=== PATIENT | female | born 1995 | race Caucasian/White ===

== ENCOUNTER 2017-01-06 03:07 | Emergency (ER) | payer OTHER, BC ==
[~2017-01-06] VITALS: Ht 172.7 cm; Wt 98.0 kg
[2017-01-06 03:07] VITALS: BP 141/86; PULSE 76; RESP 16; TEMP 98.6; O2SAT 96
[~2017-01-06 03:07] MED LIST: BACT800T5 PO; LORTA5 PO; PHEN1TAB49 PO
[2017-01-06 04:56] VITALS: BP 130/67; PULSE 71; RESP 16; O2SAT 100
[2017-01-06] MEDS: SODIUM CHLOR 0.9% 1000 ML INJ 1,000 ML IV SCH ×2 (05:10→06:26)
[2017-01-06] MEDS ORDERED: KETOROLAC TROMETHAMINE 30 MG/ML (IVP) VIAL IVP ONE (05:15)
[2017-01-06] MEDS ORDERED: FAMOTIDINE 20 MG/2 ML VIAL IV PUSH ONE (05:15)
[2017-01-06] MEDS: ALUMINUM/MAGNESIUM/SIMETH 30 ML CUP PO ONE ×2 (05:15→06:26)
[2017-01-06] MEDS ORDERED: SODIUM CHLORIDE 0.9% FLUSH 10 ML FLUSH IV FLUSH PRN (05:15)
[2017-01-06] MEDS: LIDOCAINE VISCOUS 2% SOLN 15 ML UDC PO ONE ×2 (05:15→06:26)
[2017-01-06] MEDS ORDERED: ONDANSETRON HCL 4 MG/2 ML VIAL IVP ONE (05:15)
[2017-01-06] MEDS ORDERED: MORPHINE SULFATE 4 MG/ML INJ IV PUSH ONE (05:15)
[2017-01-06 05:41] LABS: BACTERIA, URINE RARE /hpf; BLOOD, URINE NEG (NEG); CALCIUM OXALATE CRYSTALS,URINE OCC /hpf; GLUCOSE,URINE NEG (NEG); KETONE, URINE NEG (NEG); MUCUS URINE FEW /lpf (OCC); NITRITE,URINE NEG (NEG); SQUAMOUS EPITHELIAL CELL URINE 1 /hpf (0-5); URINE COLOR YELLOW (YELLW/STRAW)
[2017-01-06 05:42] LABS: COMMENT (UR) CULT NOT INDICATED; CULTURE IF INDICATED CULT NOT INDICATED
[2017-01-06 06:10] LABS: AUTOMATED NEUTROPHIL # 5.1 TH/MM3 (1.8-7.7); BASOPHIL # 0.1 TH/MM3 (0-0.2); BASOPHIL % 0.9 % (0.0-2.0); EOSINOPHIL # 0.2 TH/MM3 (0-0.4); EOSINOPHIL % 1.9 % (0.0-4.0); HEMATOCRIT 38.4 % (35.0-46.0); HEMO FLAGS DIFF FINAL; LYMPH % 41.1 % (9.0-44.0); LYMPHOCYTE # 4.2 TH/MM3 (1.0-4.8); MEAN CELL VOLUME 84.2 FL (80.0-100.0); MEAN CORPUSCULAR HEMOGLOBIN 28.7 PG (27.0-34.0); MEAN CORPUSCULAR HGB CONC 34.1 % (32.0-36.0); MONO % 6.6 % (0.0-8.0); NEUT % 49.5 % (16.0-70.0); PLATELET COUNT 301 TH/MM3 (150-450); RED BLOOD COUNT 4.56 MIL/MM3 (4.00-5.30); RED CELL DISTRIBUTION WIDTH 12.7 % (11.6-17.2); WHITE BLOOD COUNT 10.3 TH/MM3 (4.0-11.0)
[2017-01-06 06:29] VITALS: BP 132/81; PULSE 87; RESP 16; O2SAT 98
[2017-01-06 06:50] LABS: BICARBONATE 28.2 MEQ/L (21.0-32.0); POTASSIUM 3.4 MEQ/L (3.5-5.1)
[2017-01-06 06:52] LABS: INDIRECT BILIRUBIN 0.1 MG/DL (0.0-0.8); TOTAL BILIRUBIN ADULT 0.2 MG/DL (0.2-1.0)
--- NOTE | 2017-01-06 06:57 | PD ---
HPI Chief Complaint: Abdominal Pain Time Seen by Provider: 05:01 Travel History International Travel<30 days: No Contact w/Intl Traveler<30days: No Traveled to known affect area: No History of Present Illness HPI Patient is a 21-year-old female comes in complaining of epigastric pain. She says she has had the pain on and off for a few days, but got worse last night. She says she ate [employer] prior to going to bed. She denies fever or chills. She says she occasionally has nausea, but not vomiting. She denies radiation of the pain. She says she is concerned about her gallbladder. FOR[facility]LY [facility], [facility] Past Medical History Medical History: Denies Significant Hx Tetanus Vaccination: Never Vaccinated Influenza Vaccination: No ?: Not LMP: 12/26/16 Past Surgical History Surgical History: No Previous Surgery Social History Alcohol Use: Yes ([facility]) Tobacco Use: No Substance Use: No Allergies-Medications (Allergen,Severity, Reaction): Coded Allergies: No Known Allergies (Verified , 01/06/17) Reported Meds & Prescriptions Reported Meds & Active Scripts Active No Active Prescriptions or Reported Medications Review of Systems Except as stated in HPI: all other systems reviewed are Neg General / Constitutional: No: Fever, Chills HENT: No: Headaches, Lightheadedness Cardiovascular: No: Chest Pain or Discomfort Respiratory: No: Shortness of Breath Gastrointestinal: Positive: Nausea, Abdominal Pain, No: Vomiting Genitourinary: No: Dysuria Skin: No Rash, No Change in Pigmentation Neurologic: No: Weakness, Dizziness Physical Exam Narrative GENERAL: Awake and alert, in no acute distress. SKIN: Focused skin assessment warm/dry. HEAD: Atraumatic. Normocephalic. EYES: Pupils equal and round. No scleral icterus. ENT: Mucous membranes pink and moist. NECK: Trachea midline. No JVD. CARDIOVASCULAR: Regular rate and rhythm. No murmur appreciated. RESPIRATORY: No accessory muscle use. Clear to auscultation. Breath sounds equal bilaterally. GASTROINTESTINAL: Abdomen soft, nondistended. Mild tenderness to the right upper quadrant epigastric area. No rebound or guarding. MUSCULOSKELETAL: No obvious deformities. No clubbing. No cyanosis. No edema. NEUROLOGICAL: Awake and alert. No obvious cranial nerve deficits. Motor grossly within normal limits. Normal speech. PSYCHIATRIC: Appropriate mood and affect; insight and judgment normal. Data Data Last Documented VS Vital Signs Date Time Temp Pulse Resp B/P Pulse Ox O2 Delivery O2 Flow Rate FiO2 01/06/17 06:29 87 16 132/81 98 Room Air 01/06/17 03:07 98.6 Orders Urinalysis - C+S If Indicated (01/06/17 04:34) Ed Urine Pregnancytest Poc (01/06/17 04:34) Basic Metabolic Panel (Bmp) (01/06/17 05:10) Complete Blood Count With Diff (01/06/17 05:10) Lipase (01/06/17 05:10) Us Abdomen Gallbladder (01/06/17 ) Iv Access Insert/Monitor (01/06/17 05:10) Ecg Monitoring (01/06/17 05:10) Oximetry (01/06/17 05:10) Morphine Inj (Morphine Inj) (01/06/17 05:15) Ondansetron Inj (Zofran Inj) (01/06/17 05:15) Sodium Chlor 0.9% 1000 Ml Inj (Ns 1000 M (01/06/17 05:10) Sodium Chloride 0.9% Flush (Ns Flush) (01/06/17 05:15) Famotidine Inj (Pepcid Inj) (01/06/17 05:15) Ketorolac Inj (Toradol Inj) (01/06/17 05:15) Al-Mag Hy-Si 40-40-4 Mg/Ml Liq (Mag-Al P (01/06/17 05:15) Lidocaine 2% Viscous (Xylocaine 2% Visco (01/06/17 05:15) Hepatic Functional Panel (01/06/17 05:10) Labs Laboratory Tests Test 01/06/17 01/06/17 04:35 05:00 Urine Color YELLOW Urine Turbidity CLEAR Urine pH 6.0 Urine Specific [place] 1.039 Urine Protein TRACE mg/dL Urine Glucose (UA) NEG mg/dL Urine Ketones NEG mg/dL Urine Occult Blood NEG Urine Nitrite NEG Urine Bilirubin NEG Urine Urobilinogen 2.0 MG/DL Urine Leukocyte Esterase NEG Urine RBC 2 /hpf Urine WBC LESS THAN 1 /hpf Urine Squamous Epithelial 1 /hpf Cells Urine Calcium Oxalate Crystals OCC /hpf Urine Bacteria RARE /hpf Urine Mucus FEW /lpf Microscopic Urinalysis Comment CULT NOT INDICATED White Blood Count 10.3 TH/MM3 Red Blood Count 4.56 MIL/MM3 Hemoglobin 13.1 GM/DL Hematocrit 38.4 % Mean Corpuscular Volume 84.2 FL Mean Corpuscular Hemoglobin 28.7 PG Mean Corpuscular Hemoglobin 34.1 % Concent Red Cell Distribution Width 12.7 % Platelet Count 301 TH/MM3 Mean Platelet Volume 8.9 FL Neutrophils (%) (Auto) 49.5 % Lymphocytes (%) (Auto) 41.1 % Monocytes (%) (Auto) 6.6 % Eosinophils (%) (Auto) 1.9 % Basophils (%) (Auto) 0.9 % Neutrophils # (Auto) 5.1 TH/MM3 Lymphocytes # (Auto) 4.2 TH/MM3 Monocytes # (Auto) 0.7 TH/MM3 Eosinophils # (Auto) 0.2 TH/MM3 Basophils # (Auto) 0.1 TH/MM3 CBC Comment DIFF FINAL Differential Comment Sodium Level 141 MEQ/L Potassium Level 3.4 MEQ/L Chloride Level 106 MEQ/L Carbon Dioxide Level 28.2 MEQ/L Anion Gap 7 MEQ/L Blood Urea Nitrogen 15 MG/DL Creatinine 0.95 MG/DL Estimat Glomerular Filtration 74 ML/MIN Rate Random Glucose 89 MG/DL Calcium Level 8.7 MG/DL Direct Bilirubin 0.1 MG/DL Aspartate Amino Transf 15 U/L (AST/SGOT) Albumin 3.8 GM/DL Lipase 122 U/L [facility] Medical Decision Making Medical Screen Exam Complete: Yes Emergency Medical Condition: Yes Differential Diagnosis Cholecystitis versus cholelithiasis versus GERD versus gastritis Narrative Course Patient is a 21-year-old female comes in complaining of abdominal pain. Exam shows tenderness to right upper quadrant and epigastric area. IV status, labs sent. Patient offered pain medicine and a GI cocktail. She refused all of the medications except for Pepcid. Ultrasound ordered. Patient signed out to Dr. Urrutia to follow up testing and disposition the patient. Scripts No Active Prescriptions or Reported Meds Condition: Crystal Sandoval MD Jan 06, 2017 06:57
--- NOTE | 2017-01-06 09:18 | RADRPT ---
EXAM DATE/TIME: 01/06/2017 08:36 [place] COMPARISON: No previous studies available for comparison. INDICATIONS : Right upper quadrant pain. MEDICAL HISTORY : Epigastric pain. Right upper quadrant pain. SURGICAL HISTORY : None. ENCOUNTER: Initial ACUITY: 1 week PAIN SCORE: 7/10 LOCATION: Right upper quadrant MEASUREMENTS: LIVER: 15.1 cm length COMMON DUCT: 3 mm RIGHT KIDNEY: 10.1 x 6.0 x 4.7 cm FINDINGS: LIVER: Liver appears normal in size and shape with diffuse increased echogenicity. There is no focal mass or ductal dilatation. COMMON DUCT: No intraluminal mass or stone visualized. GALLBLADDER: Contains no stones, demonstrates no wall thickening or pericholecystic fluid. PANCREAS: The visualized portions are within normal limits. RIGHT KIDNEY: No evidence of hydronephrosis, stone, or mass. CONCLUSION: 1. Unremarkable gallbladder with no evidence of cholelithiasis. 2. Findings most characteristic of fatty infiltration of the liver. Lexx Lopez MD on January 06, 2017 at 9:14 Board Certified Radiologist. This report was verified electronically.
[2017-01-06] MEDS ORDERED: RANI150C PO (09:28)
--- NOTE | 2017-01-06 09:28 | PD ---
Data Data Last Documented VS Vital Signs Date Time Temp Pulse Resp B/P Pulse Ox O2 Delivery O2 Flow Rate FiO2 01/06/17 06:29 87 16 132/81 98 Room Air 01/06/17 03:07 98.6 Orders Urinalysis - C+S If Indicated (01/06/17 04:34) Ed Urine Pregnancytest Poc (01/06/17 04:34) Basic Metabolic Panel (Bmp) (01/06/17 05:10) Complete Blood Count With Diff (01/06/17 05:10) Lipase (01/06/17 05:10) Us Abdomen Gallbladder (01/06/17 ) Iv Access Insert/Monitor (01/06/17 05:10) Ecg Monitoring (01/06/17 05:10) Oximetry (01/06/17 05:10) Morphine Inj (Morphine Inj) (01/06/17 05:15) Ondansetron Inj (Zofran Inj) (01/06/17 05:15) Sodium Chlor 0.9% 1000 Ml Inj (Ns 1000 M (01/06/17 05:10) Sodium Chloride 0.9% Flush (Ns Flush) (01/06/17 05:15) Famotidine Inj (Pepcid Inj) (01/06/17 05:15) Ketorolac Inj (Toradol Inj) (01/06/17 05:15) Al-Mag Hy-Si 40-40-4 Mg/Ml Liq (Mag-Al P (01/06/17 05:15) Lidocaine 2% Viscous (Xylocaine 2% Visco (01/06/17 05:15) Hepatic Functional Panel (01/06/17 05:10) Labs Laboratory Tests Test 01/06/17 01/06/17 04:35 05:00 Urine Color YELLOW Urine Turbidity CLEAR Urine pH 6.0 Urine Specific [place] 1.039 Urine Protein TRACE mg/dL Urine Glucose (UA) NEG mg/dL Urine Ketones NEG mg/dL Urine Occult Blood NEG Urine Nitrite NEG Urine Bilirubin NEG Urine Urobilinogen 2.0 MG/DL Urine Leukocyte Esterase NEG Urine RBC 2 /hpf Urine WBC LESS THAN 1 /hpf Urine Squamous Epithelial 1 /hpf Cells Urine Calcium Oxalate Crystals OCC /hpf Urine Bacteria RARE /hpf Urine Mucus FEW /lpf Microscopic Urinalysis Comment CULT NOT INDICATED White Blood Count 10.3 TH/MM3 Red Blood Count 4.56 MIL/MM3 Hemoglobin 13.1 GM/DL Hematocrit 38.4 % Mean Corpuscular Volume 84.2 FL Mean Corpuscular Hemoglobin 28.7 PG Mean Corpuscular Hemoglobin 34.1 % Concent Red Cell Distribution Width 12.7 % Platelet Count 301 TH/MM3 Mean Platelet Volume 8.9 FL Neutrophils (%) (Auto) 49.5 % Lymphocytes (%) (Auto) 41.1 % Monocytes (%) (Auto) 6.6 % Eosinophils (%) (Auto) 1.9 % Basophils (%) (Auto) 0.9 % Neutrophils # (Auto) 5.1 TH/MM3 Lymphocytes # (Auto) 4.2 TH/MM3 Monocytes # (Auto) 0.7 TH/MM3 Eosinophils # (Auto) 0.2 TH/MM3 Basophils # (Auto) 0.1 TH/MM3 CBC Comment DIFF FINAL Differential Comment Sodium Level 141 MEQ/L Potassium Level 3.4 MEQ/L Chloride Level 106 MEQ/L Carbon Dioxide Level 28.2 MEQ/L Anion Gap 7 MEQ/L Blood Urea Nitrogen 15 MG/DL Creatinine 0.95 MG/DL Estimat Glomerular Filtration 74 ML/MIN Rate Random Glucose 89 MG/DL Calcium Level 8.7 MG/DL Total Bilirubin 0.2 MG/DL Direct Bilirubin 0.1 MG/DL Indirect Bilirubin 0.1 MG/DL Aspartate Amino Transf 15 U/L (AST/SGOT) Alanine Aminotransferase 28 U/L (ALT/SGPT) Alkaline Phosphatase 58 U/L Total Protein 7.3 GM/DL Albumin 3.8 GM/DL Lipase 122 U/L [facility] Supervised Visit with VICTOR M: Yes Narrative Course 21 year-old woman with abdominal pain. Patient initially evaluated by Dr. Catalan, signed out to me to follow-up on the results of diagnostic testing and ultrasound. Labs show: CBC is unremarkable CMP is unremarkable lipase unremarkable UA gallbladder ultrasound unremarkable. FINAL: Workup suggestive of gastritis. Recommend ranitidine, outpatient follow- up. Diagnosis Primary Impression: Abdominal pain Additional Instruction: Take ranitidine as prescribed. Follow-up with your primary doctor in the next 2-4 days. Return to the emergency department for any new or worsening symptoms. Scripts Ranitidine 150 Mg Spr754 Mg PO BID 14 Days Prov:Alexis Urrutia MD 01/06/17 Disposition: 01 DISCHARGE HOME Condition: Stable Alexis Urrutia MD Jan 06, 2017 09:28
== END 2017-01-06 09:49 | disposition home or self-care (01) ==
LOC: NEPE 03:07
DX: R10.13 Epigastric pain (principal); R11.0 Nausea
CPT/HCPCS: 76705; 80048; 80076; 81001; 83690; 84703; 85025; 96361; 96374; 99284; J7030